=== PATIENT | male | born 1980 | race Caucasian/White ===

== ENCOUNTER 2023-03-27 09:12 | Outpatient (CLI) | payer BC ==
[2023-03-27 09:30] LABS: BASOPHILS % (AUTO) 0.4 %; EOSINOPHILS # (AUTO) 0.1 10^3/uL (0.0-0.7); EOSINOPHILS % (AUTO) 2.1 %; HCT - HEMATOCRIT 44.5 % (42.0-52.0); LYMPHOCYTES # (AUTO) 1.9 10^3/uL (1.5-3.5); LYMPHOCYTES % (AUTO) 36.6 %; MEAN CORPUSCULAR HEMOGLOBIN 26.4 pg (27.0-31.0); MEAN CORPUSCULAR HGB CONC 31.5 g/dL (32.0-36.0); MEAN CORPUSCULAR VOLUME 83.8 fL (80.0-94.0); MEAN PLATELET VOLUME 8.9 fL (7.4-11.4); MONOCYTES # (AUTO) 0.4 10^3/uL (0.0-1.0); MONOCYTES % (AUTO) 7.8 %; NEUTROPHILS # (AUTO) 2.7 10^3/uL (1.5-6.6); NEUTROPHILS % (AUTO) 52.9 %; PLT - PLATELET COUNT 284 10^3/uL (130-450); RED BLOOD COUNT 5.31 10^6/uL (4.70-6.10); RED CELL DISTRIBUTION WIDTH 12.8 % (12.0-15.0); WHITE BLOOD COUNT 5.1 x10^3/uL (4.8-10.8)
[2023-03-27 09:45] LABS: ALBUMIN 4.4 g/dL (3.2-5.5); ALBUMIN/GLOBULIN RATIO 1.6 (1.0-2.2); ALKALINE PHOSPHATASE 68 IU/L (42-121); ALT ALANINE AMINOTRANSFERASE 25 IU/L (10-60); AST ASPARTATE AMINOTRANSFERASE 14 IU/L (10-42); BUN - BLOOD UREA NITROGEN 11 mg/dL (6-20); CALCIUM 9.4 mg/dL (8.5-10.3); CARBON DIOXIDE - CO2 30 mmol/L (21-32); CHLORIDE 105 mmol/L (101-111); CHOL/HDL RATIO 4.9 (<5.0); CHOLESTEROL 241 mg/dL; CREATININE 0.7 mg/dL (0.6-1.3); GFR - MDRD 125 (>89); GLUCOSE 94 mg/dL (74-104); HDL CHOLESTEROL 49 mg/dL; LDL CHOLESTEROL,CALCULATED 161 mg/dL; LDL/HDL RATIO 3.3 (<3.6); POTASSIUM 4.4 mmol/L (3.5-4.5); SODIUM 138 mmol/L (135-145); TOTAL PROTEIN 7.1 g/dL (6.4-8.9); TRIGLYCERIDES 153 mg/dL (48-352); VLDL CHOLESTEROL 31 mg/dL
[2023-03-27 10:00] LABS: THYROID STIMULATING HORMONE 2.09 uIU/mL (0.34-5.60)
== END 2023-03-27 09:13 | disposition home or self-care (01) ==
LOC: LAB 09:12
PROVIDERS: ATTEND Physician Assistant
DX: E78.5 Hyperlipidemia, unspecified (principal); E53.8 Deficiency of other specified B group vitamins; Z13.9 Encounter for screening, unspecified; Z13.29 Encounter for screening for other suspected endocrine disorder
CPT/HCPCS: 36415; 80053; 80061; 82607; 82746; 83721; 84443; 85025

== ENCOUNTER 2023-04-24 17:10 | Emergency (ER) | payer BC ==
[2023-04-24 17:26] VITALS: BP 160/90; O2SAT 97
[2023-04-24] MEDS ORDERED: CETIRIZINE 10 MG TABLET PO STA (17:40)
[2023-04-24] MEDS ORDERED: PSEUDOEPHEDRINE 30 MG TABLET PO STA (17:40)
--- NOTE | 2023-04-24 17:43 | ED Physician Documentation ---
History of Present Illness - Stated complaint Stated Complaint: HEAD PRESSURE - Chief complaint Chief Complaint: General - History obtained from History obtained from: Patient - History of Present Illness Timing: How many days ago (3) Pain level max: 3 Pain level now: 3 - Additonal information Additional information: Patient is a 42-year-old male who presents to the emergency department with a cough for the past 2 to 3 days, sinus congestion and right-sided sinus pressure today. He states that he took his Ativan without relief. Has not taken any decongestants. No sore throat. No fevers. No chills. He states he felt some tingling on the right side of his face today. No vision changes. No falls. No trauma. No neck pain. No headache. Has not taken anything for pain. Review of Systems Constitutional: denies: Fever, Chills : denies: Dysuria Skin: denies: Rash Musculoskeletal: denies: Neck pain, Back pain Neurologic: denies: LOC PD PAST MEDICAL HISTORY - Past Medical History Past Medical History: Yes - Past Surgical History Past Surgical History: No - Present Medications Home Medications: Ambulatory Orders Medication Instructions Recorded Confirmed Cetirizine HCl/Pseudoephedrine 1 tab PO BID PRN #20 tab 04/24/23 [Zyrtec-D ER 5 mg-120 mg Tablet] Mometasone Furoate [Nasonex 24Hr 1 spray NS DAILY #1 ea 04/24/23 Allergy] - Allergies Allergies/Adverse Reactions: Allergies Allergy/AdvReac Type Severity Reaction Status Date / Time No Known Drug Allergies Allergy Verified 04/24/23 17:19 - Social History Does the pt smoke?: No Smoking Status: Never smoker Does the pt drink ETOH?: No Does the pt have substance abuse?: No - Immunizations Immunizations are current?: Yes - POLST Patient has POLST: No PD ED PE NORMAL - Vitals Vital signs reviewed: Yes - General General: Alert and oriented X 3, No acute distress, Well developed/nourished - HEENT HEENT: PERRL, Ears normal, Moist mucous membranes, Pharynx benign, Other (Tenderness over the right frontal sinus. Also mild tenderness over the right maxillary sinus. Inflamed nasal turbinate on the right side) - Neck Neck: Supple, no meningeal sign - Cardiac Cardiac: RRR, Strong equal pulses - Respiratory Respiratory: No respiratory distress, Clear bilaterally - Abdomen Abdomen: Soft, Non tender, Non distended - Derm Derm: Warm and dry - Extremities Extremities: No deformity - Neuro Neuro: Alert and oriented X 3, health science specialist 2-12 intact, No motor deficit, No sensory deficit, Normal speech, Other (NIH stroke scale of 0. No nystagmus. No facial swelling) Eye Opening: Spontaneous Motor: Obeys Commands Verbal: Oriented GCS Score: 15 - Psych Psych: Normal mood, Normal affect Results - Vitals Vitals: Vital Signs - 24 hr 04/24/23 17:19 Temperature 36.8 C Heart Rate 100 Respiratory 16 Rate Blood Pressure 160/90 H O2 Saturation 97 Oxygen O2 Source Room air PD Medical Decision Making - ED course Complexity details: considered differential, d/w patient ED course: 42-year-old male with what appears to be a viral URI complicated by sinus pressure and congestion. Will place on intranasal steroids and decongestants for home. No evidence of orbital cellulitis. No focal neurological deficits. No indication for emergent neuroimaging. Ambulating without difficulty. No emergency medical condition at this time. Normal facial symmetry. Patient counseled regarding signs and symptoms for which I believe and urgent re- evaluation would be necessary. Patient with good understanding of and agreement to plan and is comfortable going home at this time This document was made in part using voice recognition software. While efforts are made to proofread this document, sound alike and grammatical errors may occur. Departure - Departure Disposition: 01 Home, Self Care Clinical Impression: Sinusitis Qualifiers: Sinusitis location: unspecified location Chronicity: acute Recurrence: non- recurrent Qualified Code(s): J01.90 - Acute sinusitis, unspecified Condition: Good Instructions: ED Sinusitis No Abx Follow-Up: your,doctor in 1 week [Other] Prescriptions: Mometasone Furoate [Nasonex 24Hr Allergy] 1 spray NS DAILY #1 ea Cetirizine HCl/Pseudoephedrine [Zyrtec-D ER 5 mg-120 mg Tablet] 1 tab PO BID PRN #20 tab PRN Reason: nasal congestion Comments: Your prescriptions were sent to [facility] in [place]. Use the medications as prescribed, this will help to decongest your sinuses and should help your pressure. Please follow-up with your doctor for further care. Please return if you worsen. Forms: PCP List Discharge Date/Time: 04/24/23 18:01
== END 2023-04-24 18:01 | disposition home or self-care (01) ==
LOC: ED 17:10
DX: J01.90 Acute sinusitis, unspecified (principal)
CPT/HCPCS: 99282; 99283; A9270

== ENCOUNTER 2024-01-01 12:10 | Emergency (ER) | payer BC ==
[2024-01-01 12:37] VITALS: BP 139/85; O2SAT 99
--- NOTE | 2024-01-01 12:59 | ED Physician Documentation ---
History of Present Illness - Stated complaint Stated Complaint: RABIES VACCINE - Chief complaint Chief Complaint: Exposure - History obtained from History obtained from: Patient - Additonal information Additional information: The patient comes to the emergency department chief complaint of bat exposure. He states that 3 nights ago, they found a bat on the bedroom floor in the room where the patient, his , and one of their daughters sleep. They turned it into the [facility] who stated that the bat was "too far gone" to test and that they should come here to get rabies vaccines. The patient has never had a rabies vaccine before. He denies any symptoms. No other complaints at this time. PD PAST MEDICAL HISTORY - Past Medical History Past Medical History: Yes Cardiovascular: Hypertension Respiratory: Asthma Neuro: None Endocrine/Autoimmune: None GI: None : None HEENT: None Psych: None Musculoskeletal: None Derm: None - Past Surgical History Past Surgical History: Yes - Present Medications Home Medications: Ambulatory Orders Medication Instructions Recorded Confirmed Cetirizine HCl/Pseudoephedrine 1 tab PO BID PRN #20 tab 04/24/23 [Zyrtec-D ER 5 mg-120 mg Tablet] Mometasone Furoate [Nasonex 24Hr 1 spray NS DAILY #1 ea 04/24/23 Allergy] - Allergies Allergies/Adverse Reactions: Allergies Allergy/AdvReac Type Severity Reaction Status Date / Time No Known Drug Allergies Allergy Verified 01/01/24 12:35 - Social History Does the pt smoke?: No Smoking Status: Never smoker Does the pt drink ETOH?: No Does the pt have substance abuse?: No - Immunizations Immunizations are current?: Yes - POLST Patient has POLST: No PD ED PE NORMAL - Vitals Vital signs reviewed: Yes - General General: Alert and oriented X 3, No acute distress, Well developed/nourished - HEENT HEENT: Atraumatic, PERRL, Moist mucous membranes - Neck Neck: Supple, no meningeal sign - Respiratory Respiratory: No respiratory distress - Derm Derm: Normal color, Warm and dry, No rash - Extremities Extremities: No deformity - Neuro Neuro: Other - Psych Psych: Normal mood, Normal affect Results - Vitals Vitals: Vital Signs - 24 hr 01/01/24 12:30 Temperature 36.2 C L Heart Rate 67 Respiratory 20 Rate Blood Pressure 139/85 H O2 Saturation 99 Oxygen O2 Source Room air PD Medical Decision Making - ED course Complexity details: considered differential, d/w patient, d/w family ED course: The patient was given rabies prophylaxis and instructed regarding the schedule f or rabies vaccine. Departure - Departure Disposition: Home, Self Care Clinical Impression: Exposure to bat without known bite Condition: Stable Instructions: Rabies Comments: You have been treated with your first rabies vaccine today. Your next doses will be on day 3 from now, day 7 from now, and day 14 from now. That will be January 03, January 07, and January 14. Forms: PCP List
[2024-01-01] MEDS: RABIES VACCINE 2.5 UNIT SYRINGE IM ONE (13:25)
== END 2024-01-01 13:48 | disposition home or self-care (01) ==
LOC: ED 12:10
DX: Z20.3 Contact with and (suspected) exposure to rabies (principal); Z29.14 Encounter for prophylactic rabies immune globulin
CPT/HCPCS: 90471; 99282; 99283